=== PATIENT | male | born 1975 | race American Indian/Alaskan Native ===

== ENCOUNTER 2017-07-19 00:50 | Emergency (ER) | payer SELFPAY ==
[2017-07-19 00:58] VITALS: BP 145/96
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
--- NOTE | 2017-07-19 02:10 | Cat Scan Report ---
FINAL REPORT PROCEDURE: CT HEAD/BRAIN WO CON TECHNIQUE: Computerized tomography of the head was performed without contrast material. HISTORY: head injury COMPARISON: No prior studies are available for comparison. FINDINGS: Skull and scalp: There is left frontal scalp swelling and laceration. There is no skull fracture. There is a lytic expansile intraosseous lesion in the apex of the left temporal bone and the left occipital condyle measuring 16 x 35 millimeters. Metastatic lesion cannot be excluded. Paranasal sinuses: Normal. Ventricles and subarachnoid spaces: Normal. Cerebrum: No evidence of hemorrhage, acute infarction or mass . Cerebellum and brainstem: No evidence of hemorrhage, acute infarction or mass. Vasculature: Normal. Comments: None. IMPRESSION: There is no intracranial hemorrhage, edema, mass effect or midline shift. There is left frontal scalp swelling and laceration. There is no skull fracture. There is a lytic expansile intraosseous lesion in the apex of the left temporal bone and the left occipital condyle measuring 16 x 35 millimeters. Metastatic lesion cannot be excluded.
[2017-07-19] MEDS ORDERED: TENIVAC IM ONE (02:15)
[2017-07-19] MEDS ORDERED: NORCO 5/325 PO ONE (02:15)
[2017-07-19] MEDS ORDERED: BOOSTRIX IM ONE (02:47)
== END 2017-07-19 02:50 | disposition home or self-care (01) ==
LOC: ED 00:50
DX: S01.01XA Laceration without foreign body of scalp, initial encounter (principal); F17.200 Nicotine dependence, unspecified, uncomplicated; F12.10 Cannabis abuse, uncomplicated; X99.8XXA Assault by other sharp object, initial encounter; Y93.89 Activity, other specified; Y99.8 Other external cause status; Y92.89 Other specified places as the place of occurrence of the external cause
CPT/HCPCS: 70450; 90471; 90714; 90715